=== PATIENT | male | born 1980 | race Caucasian/White ===

== ENCOUNTER 2024-01-02 08:04 | Outpatient (OUT) | payer OTHER, SELFPAY ==
[2024-01-02 08:31] LABS: Basophils Absolute Auto 0.1 10^3/uL (0.0-0.1); Basophils Percent Auto 0.9 % (0.2-2.0); Eosinophils Absolute Auto 0.2 10^3/uL (0.0-0.7); Eosinophils Percent Auto 2.4 % (0.9-7.0); Hematocrit 42.3 % (42.0-54.0); Hemoglobin 13.9 g/dL (14.0-18.0); Immature Granulocytes Abs Auto 0.03 10^3/uL (0.00-0.03); Immature Granulocytes Pct Auto 0.4 % (0.0-0.5); Lymphocytes Absolute Auto 2.5 10^3/uL (1.2-3.8); Lymphocytes Percent Auto 33.1 % (20.5-60.0); Mean Corpuscular HGB Conc 32.9 g/dL (29.9-35.2); Mean Corpuscular Hemoglobin 29.6 pg (25.9-34.0); Mean Platelet Volume 9.8 fL (9.5-13.5); Monocytes Absolute Auto 0.6 10^3/uL (0.3-0.8); Monocytes Percent Auto 8.2 % (1.7-12.0); Neutrophils Absolute Auto 4.2 10^3/uL (1.4-6.5); Platelet Count 202 10^3/uL (150-450); Red Cell Distribution Width 12.7 % (11.0-15.0); White Blood Count 7.6 10^3/uL (4.0-11.0)
[2024-01-02 08:37] LABS: Estimated Average Glucose 111 mg/dL; Glycohemoglobin A1C 5.5 % (4.5-6.2)
[2024-01-02 09:01] LABS: Alanine Aminotransferase 85 U/L (16-63); Albumin Globulin Ratio 1.1; Albumin Level 3.7 g/dL (3.4-5.0); Alkaline Phosphatase 57 U/L (46-116); Anion Gap 12.6; Aspartate Amino Transferase 31 U/L (15-37); BUN Creatinine Ratio 16.7; Bilirubin Total 0.7 mg/dL (0.2-1.0); Calcium 8.5 mg/dL (8.5-10.1); Carbon Dioxide 27.7 mmol/L (21.0-32.0); Chloride 106 mmol/L (98-107); Chol HDL Ratio 5.4; Cholesterol 182 mg/dL (<=200); Estimated GFR (African America >60 (>=60); Estimated GFR (Non-African Ame >60 (>=60); Free T3 3.21 pg/mL (2.18-3.98); Globulin 3.5 g/dL; Glucose 104 mg/dL (74-106); HDL Cholesterol 34 mg/dL (40-60); Potassium 4.3 mmol/L (3.5-5.1); Sodium 142 mmol/L (136-145); Thyroid Stimulating Hormone 1.595 uIU/mL (0.358-3.740); Total Protein 7.2 g/dL (6.4-8.2); Triglycerides 229 mg/dL (<=150); VLDL CHOLESTEROL 45.8 mg/dL
[2024-01-03 12:07] LABS: Insulin 15.3 uIU/mL (2.6-24.9)
== END 2024-01-02 08:05 | disposition home or self-care (01) ==
PROVIDERS: PCP Family Medicine; Visit Provider Family Medicine
DX: Z00.00 Encounter for general adult medical examination without abnormal findings (principal); I48.0 Paroxysmal atrial fibrillation; R73.09 Other abnormal glucose; D64.9 Anemia, unspecified
CPT/HCPCS: 36415; 80053; 80061; 83036; 83525; 83540; 84436; 84443; 84481; 85025

== ENCOUNTER 2024-07-18 14:35 | Emergency (ER) | payer OTHER, SELFPAY ==
[2024-07-18 14:49] VITALS: BP 162/90; PULSE 78; TEMP 36.8; O2SAT 95; BMI 31.2
--- NOTE | 2024-07-18 15:02 | ECG_ITS ---
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
--- NOTE | 2024-07-18 15:02 | CT_ITS ---
The [address] [address] Patient Name: CHARLY ZEE MRN: [id number] date: 1980 Sex: M Assigned Patient Location: ER Current Patient Location: ER Accession/Order Number: [id number] Exam Date: 07/18/2024 15:20 Report Date: 07/18/2024 16:00 At the request of: HUBERT SHEPARD Procedure: CT head/brain wo con EXAM: CT head/brain wo con CLINICAL INDICATION: scotomata, MITCHELL COMPARISON: None TECHNIQUE: Axial CT images of the brain were obtained without contrast. Coronal and sagittal reformats were obtained. Dose reduction techniques were achieved by using automated exposure control and/or adjustment of mA and/or kV according to patient size and/or use of iterative reconstruction technique. FINDINGS: No intracranial hemorrhage, extra-axial fluid collection, hydrocephalus, midline shift, or acute infarction. No other mass effect. Patent basal cisterns. No calvarial fracture. Normal soft tissues. Trace scattered paranasal sinus mucosal thickening. CT/CT head/brain wo con IMPRESSION: No acute intracranial process. Electronically authenticated by: SHANIQUE NOLEN Date: 07/18/2024 16:00
--- NOTE | 2024-07-18 15:03 | ED_ITS ---
HPI HPI - General Adult General Chief complaint: Altered Mental Status Stated complaint: CONFUSION BLURRY VISION Time Seen by Provider: 07/18/24 14:44 Source: patient Mode of arrival: walk-in History of Present Illness HPI narrative: Male presents to the emergency department for episodes of flashing lights in his visual field and headaches. This has been happening for about the past 3 weeks. Twice he had not experienced where it lasted for about 1 or 2 minutes where he felt like he was in a video game, that things were not real. He saw his family doctor about this who is planning on some outpatient testing but it has not been accomplished yet. He does not seem to have any symptoms right now. He has no history of migraine headaches. Related Data Home Medications ?Medication ?Instructions ?Recorded ?Confirmed apixaban 5 mg tablet (Eliquis) 5 mg PO Q12H 07/18/24 07/18/24 losartan 100 mg tablet 100 mg PO DAILY 07/18/24 07/18/24 metoprolol tartrate 50 mg tablet 75 mg PO Q12H 07/18/24 07/18/24 pantoprazole 40 mg tablet,delayed 40 mg PO Q12H 07/18/24 07/18/24 release phentermine 37.5 mg tablet 37.5 mg PO DAILY 07/18/24 07/18/24 simvastatin 40 mg tablet 40 mg PO DAILY 07/18/24 07/18/24 Allergies Allergy/AdvReac Type Severity Reaction Status Date / Time No Known Drug Allergies Allergy Verified 07/18/24 15:13 Opioid HPI Opioid Management Most Recent Opioid Data: No Data to Display Review of Systems ROS Narrative A ten point review of systems is negative except as noted above. PFSH PFSH Social History Little interest or pleasure in doing things: not at all Feeling down, depressed, or hopeless: not at all Exam Narrative Exam Narrative: Nurses note and vital signs reviewed and patient is not hypoxic. General: The patient appears well and in no apparent distress. Patient is resting comfortably on cart. Skin: Warm, dry, no pallor noted. There is no rash noted. Head: Normocephalic, atraumatic Eye: Normal conjunctiva, no drainage; PERRL Ears, Nose, Mouth, and Throat: oral mucosa is moist. Nares patent. Cardiovascular: Regular Rate and Rhythm Respiratory: Patient is in no distress, no accessory muscle use, lungs are clear to auscultation, no wheezing, rales or rhonchi Back: non-tender GI: Soft and nontender Musculoskeletal: The patient has no evidence of calf tenderness, no pitting edema, symmetrical pulses noted bilaterally Neurological: A&O x4, normal speech; upper and lower extremity strength intact and symmetric Psychiatric: Cooperative Constitutional Vital Signs, click to edit/add: Last Vital Signs Temp 98.2 F 07/18/24 14:49 Pulse 78 07/18/24 14:49 Resp 18 07/18/24 14:49 BP 162/90 H 07/18/24 14:49 Pulse Ox 95 07/18/24 14:49 Course Vital Signs Vital signs: Vital Signs Temperature 98.2 F 07/18/24 14:49 Pulse Rate 78 07/18/24 14:49 Respiratory Rate 18 07/18/24 14:49 Blood Pressure 162/90 H 07/18/24 14:49 Pulse Oximetry 95 07/18/24 14:49 Temperature 98.2 F 07/18/24 14:49 Pulse Rate 78 07/18/24 14:49 Respiratory Rate 18 07/18/24 14:49 Blood Pressure 162/90 H 07/18/24 14:49 Pulse Oximetry 95 07/18/24 14:49 Medical Decision Making MDM Narrative Medical decision making narrative: CT brain and blood work are negative. His symptoms are consistent with an ocula r migraine and this was discussed with him. Case discussed as well with his PCP and the patient will continue to follow-up as an outpatient including likely an MRI. Differential Diagnosis Differential Diagnosis: Ocular migraine, migraine headache, intracranial mass Lab Data Lab results reviewed: Yes I reviewed the patient's lab results Labs: Lab Results 07/18/24 Range/Units 15:00 WBC 7.0 (4.0-11.0) 10^3/uL RBC 4.88 (4.70-6.10) 10^6/uL Hgb 14.8 (14.0-18.0) g/dL Hct 44.4 (42.0-54.0) % MCV 91.0 (80.0-94.0) fL MCH 30.3 (25.9-34.0) pg MCHC 33.3 (29.9-35.2) g/dL RDW 12.2 (11.0-15.0) % Plt Count 194 (150-450) 10^3/uL MPV 9.1 L (9.5-13.5) fL Neut % (Auto) 67.2 (43.0-75.0) % Lymph % (Auto) 23.2 (20.5-60.0) % Bullitt % (Auto) 6.5 (1.7-12.0) % Eos % (Auto) 2.1 (0.9-7.0) % Baso % (Auto) 0.7 (0.2-2.0) % Neut # (Auto) 4.7 (1.4-6.5) 10^3/uL Lymph # (Auto) 1.6 (1.2-3.8) 10^3/uL Bullitt # (Auto) 0.5 (0.3-0.8) 10^3/uL Eos # (Auto) 0.2 (0.0-0.7) 10^3/uL Baso # (Auto) 0.1 (0.0-0.1) 10^3/uL Abs Immat Gran (auto) 0.02 (0.00-0.03) 10^3/uL Imm/Tot Granulo (auto) 0.3 (0.0-0.5) % Sodium 139 (136-145) mmol/L Potassium 4.0 (3.5-5.1) mmol/L Chloride 104 (98-107) mmol/L Carbon Dioxide 27.9 (21.0-32.0) mmol/L Anion Gap 11.1 BUN 17.0 (7.0-18.0) mg/dL Creatinine 1.44 H (0.70-1.30) mg/dL Est GFR ( Amer) >60 (>=60 mL/min/1.73m^2) Est GFR (Non-Af Amer) 54 L (>=60 mL/min/1.73m^2) BUN/Creatinine Ratio 11.8 Glucose 100 (74-106) mg/dL Calcium 8.6 (8.5-10.1) mg/dL Imaging Data CT scan - head: Radiologist's impression: ITS Impressions Head CT 07/18/24 15:02 IMPRESSION: No acute intracranial process. Electronically authenticated by: SHANIQUE NOLEN Date: 07/18/2024 16:00 ECG Data Attestation: I personally reviewed and interpreted this ECG as follows: (EKG on my interpretation shows normal sinus rhythm with rate of 77 and no acute change) Discharge Plan Discharge Chief Complaint: Altered Mental Status Clinical Impression: Ocular migraine Patient Disposition: Home, Self-Care Time of Disposition Decision: 16:14 Condition: Good Mode of Transportation: Private Vehicle Prescriptions / Home Meds: No Action Eliquis 5 mg tablet 5 mg PO Q12H losartan 100 mg tablet 100 mg PO DAILY metoprolol tartrate 50 mg tablet 75 mg PO Q12H pantoprazole 40 mg tablet,delayed release (DR/EC) 40 mg PO Q12H phentermine 37.5 mg tablet 37.5 mg PO DAILY simvastatin 40 mg tablet 40 mg PO DAILY Print Language: Maltese Instructions: Migraine Headache (ED), Ocular Migraine (ED) Referrals: Tommy Melgar MD [Primary Care Provider] - 1 week
[2024-07-18 15:17] LABS: Basophils Absolute Auto 0.1 10^3/uL (0.0-0.1); Basophils Percent Auto 0.7 % (0.2-2.0); Eosinophils Absolute Auto 0.2 10^3/uL (0.0-0.7); Eosinophils Percent Auto 2.1 % (0.9-7.0); Hematocrit 44.4 % (42.0-54.0); Hemoglobin 14.8 g/dL (14.0-18.0); Immature Granulocytes Abs Auto 0.02 10^3/uL (0.00-0.03); Immature Granulocytes Pct Auto 0.3 % (0.0-0.5); Lymphocytes Absolute Auto 1.6 10^3/uL (1.2-3.8); Lymphocytes Percent Auto 23.2 % (20.5-60.0); Mean Corpuscular HGB Conc 33.3 g/dL (29.9-35.2); Mean Corpuscular Hemoglobin 30.3 pg (25.9-34.0); Mean Platelet Volume 9.1 fL (9.5-13.5); Monocytes Absolute Auto 0.5 10^3/uL (0.3-0.8); Monocytes Percent Auto 6.5 % (1.7-12.0); Neutrophils Absolute Auto 4.7 10^3/uL (1.4-6.5); Neutrophils Percent Auto 67.2 % (43.0-75.0); Platelet Count 194 10^3/uL (150-450); Red Blood Count 4.88 10^6/uL (4.70-6.10); Red Cell Distribution Width 12.2 % (11.0-15.0)
[2024-07-18 15:22] LABS: Anion Gap 11.1; BUN Creatinine Ratio 11.8; Calcium 8.6 mg/dL (8.5-10.1); Carbon Dioxide 27.9 mmol/L (21.0-32.0); Chloride 104 mmol/L (98-107); Estimated GFR (African America >60 (>=60 mL/min/1.73m^2); Estimated GFR (Non-African Ame 54 (>=60 mL/min/1.73m^2); Glucose 100 mg/dL (74-106); Sodium 139 mmol/L (136-145)
[2024-07-18 16:21] VITALS: BP 164/88; PULSE 84; O2SAT 98
== END 2024-07-18 16:21 | disposition home or self-care (01) ==
PROVIDERS: Emergency Provider Emergency Medicine; PCP Family Medicine
DX: G43.B0 Ophthalmoplegic migraine, not intractable (principal)
CPT/HCPCS: 36415; 70450; 80048; 85025; 93005; 99285

== ENCOUNTER 2024-08-01 07:39 | Outpatient (OUT) | payer OTHER, SELFPAY ==
--- NOTE | 2024-08-01 07:41 | MR_ITS ---
The [address] [address] Patient Name: CHARLY ZEE MRN: [id number] date: 1980 Sex: M Assigned Patient Location: MRI Current Patient Location: MRI Accession/Order Number: [id number] Exam Date: 08/01/2024 07:54 Report Date: 08/01/2024 14:33 At the request of: SHERRY SCHULTZ Procedure: MR head/brain wo con MRI brain without contrast, 08/01/2024. HISTORY: Altered mental status. Headaches. COMPARISON: CT head, 07/18/2024. TECHNIQUE: Multiplanar, multisequence MRI imaging of the brain without contrast. FINDINGS: The paranasal sinuses are clear. The mastoid air cells are clear. Nasopharynx normal. Senior Information Security Engineer spaces are normal. Orbital contents normal. The ventricles are normal in size. There is no hydrocephalus. No extra-axial fluid collection. No mass effect. No shift of midline. No significant signal abnormalities in the brain. Diffusion images are normal. No acute ischemic infarction. T2 gradient images show no hemorrhagic lesions. No intracranial mass. MR/MR head/brain wo con IMPRESSION: Normal MRI of the brain. Electronically authenticated by: LAM EMERY Date: 08/01/2024 14:33
--- OUTSIDE RECORDS SUMMARY | 2024-08-01 07:41 | XMS_ITS | CCD ---
Author Organization [facility] Care Team Providers Care Fios Line Installer Name Role Phone Sherry Melgar Primary Care Provider [phone] OLAF CARLSON Attending Unavailable SHERRY MELGAR Primary Care Unavailable Sherry Melgar Primary Care Physician [phone] Unavailable Primary Care Provider Aylin Cooley, DR POWELL Attending Unavailable ANTOINE ., DR POWELL Consulting Unavailable ANTOINE Cooley, DR POWELL Admitting Unavailable Unavailable Primary Care Provider Yomaira Riuz Attending Unavailable Deyvi GLEZ Attending Unavailable Deyvi GLEZ Attending Unavailable Yomaira MARINELIL Attending Unavailable Medications Current Medications Medication Drug Class(es) Dates Sig (Normalized) Sig (Original) Tylenol (6 sources) Start: 06-09-2022 Tylenol Refill s(s) 0 Start Date: 06/09/22 Status: Ordered Start: 04-15-2016 take 2 tablets by [facility] every four hours as needed for pain acetaminophen (TYLENOL) 325 MG tablet Take 2 Tablets by mouth every 4 hours as needed for Pain. 60 Tablet 3 04/15/2016 Active acetaminophen 325 mg / HYDROcodone bitartrate 5 mg oral tablet (5 sources) Opioid Agonist Start: 01-18-2019 [place] 325 mg-5 mg oral tablet See Instructions, for pain, 40 tab(s), Refill(s) 0, 1 - 2 po q4-6h prn pain Dx: S46.211D Duration: 7 days, [facility]/pharmacy #[id number] Start Date: 01/18/19 Status: Ordered Start: 01-04-2019 End: 01-07-2019 take 1 tablet by mouth every six hours as needed for pain, then take 3 tablets by mouth as needed for pain HYDROcodone-acetaminophen (NORCO) 5-325 mg per tablet Indications: Biceps rupture, distal, right, initial encounter Take 1 (one) tablet by mouth every 6 (six) hours as needed for pain (Days supply per fill: 3) . 12 tablet 0 01/04/2019 01/07/2019 Active amLODIPine 5 mg oral tablet (3 sources) Dihydropyridine Calcium Channel Arnaldo Start: 04-15-2016 take 1 tablet by mouth once daily amLODIPine (NORVASC) 5 MG tablet Take 1 Tablet by mouth daily. 30 Tablet 3 04/15/2016 Active apixaban 5 mg oral tablet (4 sources) Factor Xa Inhibitor Start: 05-26-2022 take 1 tablet by mouth twice daily Eliquis 5 mg oral tablet See Instructions, 1 tab(s) bid, Refills(s) 0 Start Date: 05/26/22 Status: Ordered budesonide 0.032 mg/actuat metered dose nasal spray (3 sources) Corticosteroid Start: 05-20-2016 take 2 spray(s) nasal route once daily budesonide (RHINOCORT AQUA) 32 MCG/ACT nasal spray [place] 2 Sprays into each nostril daily. 1 Inhaler 2 05/20/2016 Active Diclofenac (3 sources) Nonsteroidal Anti-inflammatory Drug Start: 06-09-2022 Voltaren Topical Refill(s) 0 Start Date: 06/09/22 Status: Ordered docusate sodium 100 mg oral capsule (3 sources) Start: 04-15-2016 take 1 capsule by mouth twice daily docusate sodium (COLACE) 100 MG capsule Take 1 Capsule by mouth 2 times daily. 60 Capsule 3 04/15/2016 Active glycerin 2 mg/ml / hypromellose 2 mg/ml / polyethylene glycol 400 10 mg/ml ophthalmic solution (3 sources) Non-Standardized Chemical Allergen Start: 04-15-2016 take 1 drop(s) into the eye(s) four times daily glycerin-hypromello se- (ARTIFICIAL TEARS) 0.2-0.2-1 % SOLN ophthalmic solution Place 1 Drop in the left eye 4 times daily. 1 Bottle 3 04/15/2016 Active losartan potassium 100 mg oral tablet (4 sources) Angiotensin 2 Receptor Arnaldo Start: 05-26-2022 losartan 100 mg Tab Refills(s) 0 Start Date: 05/26/22 Status: Ordered 24 hr metoprolol succinate 50 mg extended release oral tablet (4 sources) beta-Adrenergic Arnaldo Start: 05-26-2022 take 1 tablet by mouth twice daily metoprolol 50 mg ER Tab See Instructions, 1 tab(s) Oral bid, Refills(s) 0 Start Date: 05/26/22 Status: Ordered predniSONE 20 mg oral tablet (4 sources) Start: 05-26-2022 take 3 tablets by mouth once daily, then take 2 tablets by mouth once daily, then take 1 tablet by mouth once daily predniSONE 20 mg Tab See Instructions, 3 tab po daily x 3 days, then 2 tab po daily x 3 days, then 1 tab po daily x 3 days., # 18 tab(s), Refills(s) 0, Pharmacy: [facility]/pharmacy #[id number] Start Date: 05/26/22 Status: Ordered sennosides, senior care 8.6 mg oral tablet (3 sources) Start: 04-15-2016 take 1 tablet by mouth at bedtime senna (SENOKOT) 8.6 MG tablet Take 1 Tablet by mouth at bedtime. 30 Tablet 3 04/15/2016 Active simvastatin 40 mg oral tablet (4 sources) HMG-CoA Reductase Inhibitor Start: 05-26-2022 simvastatin 40 mg Tab Refills(s) 0 Start Date: 05/26/22 Status: Ordered Transthoracic Echocardiogram in One week. (4 sources) Start: 01-19-2019 Transthoracic Echocardiogram in One week. Transthoracic Echocardiogram in One week., Please fax results to Dr. Floyd., Print Requisition, Compound Start Date: 01/19/19 Status: Ordered Problems Active Problems Problem Classification Problem Date Documented Da te Episodic/Chronic Essential hypertension (3 sources) Hypertensive disorder 05-28-2022 Chronic Other injuries and conditions due to external causes (4 sources) Tendon laceration 01-17-2019 Episodic Comment on above: right bicep Substance-related disorders (4 sources) Smoker 05-31-2018 Chronic Comment on above: Added secondary to d ocumentation in Social History. Past or Other Problems Problem Classification Problem Date Documented Da te Episodic/Chronic Other connective tissue disease (5 sources) Rupture of tendon of biceps; Translations: [Biceps rupture, distal, right, initial encounter] Onset: 01-04-2019 03-14-2019 Episodic Comment on above: R distal biceps rupt ure Skull and face fractures (3 sources) Open fracture of base of skull; Translations: [Fracture of base of skull, unspecified side, initial encounter for open fracture] Onset: 04-13-2016 04-13-2016 Episodic Results Test Name Value Interpretation Reference Range Facility Registrationon 01-18-2024 Registration [id number]#[id number] [facility] [place] 08-28-2023 Consent [id number]#[id number] [facility] Registrationon 08-28-2023 Registration [id number]#1.00TIFF [facility] In office Testingon 05-07-20 In office Testing [id number]#1.00CD:12 7 [facility] [place] 05-06-2023 Consent [id number]#1.00CD:127 [facility] Registrationon 05-06-2023 Registration [id number]#1.00CD:12 7 [facility] INSULINon 12-16-2022 Insulin 24.0 uIU/mL Normal 2.6-24.9 [facility] Comment on above: Performed By: #### I NSULIN #### [facility] [address] [place] [address] Dr. Betzy Moore TESTOSTERONE, TOTALon 2022 Testosterone [Mass/Vol] 285 ng/dL Normal 264-916 T [facility] Comment on above: Result Comment: Adul t male reference interval is based on a population of healthy nonobese males (BMI <30) between 19 and 39 years old. Estuardo, et.al. JCEM 2017,102;7529-3274. PMID: [id number]. Performed By: #### T ESTTOT #### [facility] [address] [place] [address] Dr. Betzy Moore CBC AUTO DIFFon 12-15-2022 BASO # 0.1 103/ul Normal 0.0-0.1 [facility] Comment on above: Performed By: #### C BC #### [facility] [address] [place] [address] Dr. Betzy Moore Basophils/100 WBC (Bld) 1.0 % Normal 0.2-2.0 [facility] Comment on above: Performed By: #### C BC #### [facility] [address] [place] [address] Dr. Betzy Moore EO # 0.2 103/ul Normal 0.0-0.7 [facility] Comment on above: Performed By: #### C BC #### [facility] [address] [place] [address] Dr. Betzy Moore Eosinophils/100 WBC (Bld) 2.8 % Normal 0.9-7.0 [facility] Comment on above: Performed By: #### C BC #### [facility] [address] [place] [address] Dr. Betzy Moore Erythrocyte distribution width (RBC) [Ratio] 12.1 % Normal 11.0-15.0 [facility] Comment on above: Performed By: #### C BC #### [facility] [address] [place] [address] Dr. Betzy Moore Hematocrit (Bld) [Volume fraction] 44.7 % Normal 42.0-54.0 [facility] Comment on above: Performed By: #### C BC #### [facility] [address] [place] [address] Dr. Betzy Moore Hemoglobin (Bld) [Mass/Vol] 14.9 g/dL Normal 14.0-18.0 [facility] Comment on above: Performed By: #### C BC #### [facility] [address] [place] [address] Dr. Betzy Moore IG # 0.02 10e3/ul Normal 0.00-0.03 [facility] Comment on above: Performed By: #### C BC #### [facility] [address] [place] [address] Dr. Betzy Moore IG % 0.3 % Normal 0.0-0.5 [facility] Comment on above: Performed By: #### C BC #### [facility] [address] [address] [address] Betzy Moore LYMPH # 2.0 103/ul Normal 1.2-3.8 [facility] Comment on above: Performed By: #### C BC #### [facility] [address] [address] [address] Betzy Moore Lymphocytes/100 WBC (Bld) 34.8 % Normal 20.5-60.0 [facility] Comment on above: Performed By: #### C BC #### [facility] [address] [place] [address] Dr. Betzy Moore MANUAL DIFF REQ NO Normal [facility] Comment on above: Performed By: #### C BC #### [facility] [address] [place] [address] Dr. Betzy Moore MCH (RBC) [Entitic mass] 29.4 pg Normal 25.9-34.0 [facility] Comment on above: Performed By: #### C BC #### [facility] [address] [place] [address] Dr. Betzy Moore MCHC (RBC) [Mass/Vol] 33.3 g/dL Normal 29.9-35.2 [facility] Comment on above: Performed By: #### C BC #### [facility] [address] [place] [address] Dr. Betzy Moore MCV (RBC) [Entitic vol] 88.3 fL Normal 80.0-94.0 [facility] Comment on above: Performed By: #### C BC #### [facility] [address] [place] [address] Dr. Betzy Moore MONO # 0.4 103/ul Normal 0.3-0.8 [facility] Comment on above: Performed By: #### C BC #### [facility] [address] [place] [address] Dr. Betzy Moore Monocytes/100 WBC (Bld) 7.2 % Normal 1.7-12.0 [facility] Comment on above: Performed By: #### C BC #### [facility] [address] [address] [address] Betzy Moore NEUT # 3.1 103/ul Normal 1.4-6.5 [facility] Comment on above: Performed By: #### C BC #### [facility] [address] [address] [address] Betzy Moore Neutrophils/100 WBC (Bld) 53.9 % Normal 43.0-75.0 [facility] Comment on above: Performed By: #### C BC #### [facility] [address] [address] [address] Betzy Moore Platelet mean volume (Bld) [Entitic vol] 8.9 fL Critically low 9.5-13.5 [facility] Comment on above: Performed By: #### C BC #### [facility] [address] [place] [address] Dr. Betzy Moore PLT 178 103/ul Normal 150-450 [facility] Comment on above: Performed By: #### C BC #### [facility] [address] [address] [address] Betzy Moore RBC 5.06 106/ul Normal 4.70-6.10 [facility] Comment on above: Performed By: #### C BC #### [facility] [address] [place] [address] Dr. Betzy Moore WBC 5.7 103/ul Normal 4.0-11.0 [facility] Comment on above: Performed By: #### C BC #### [facility] [address] [place] [address] Dr. Betzy Moore GLYCOHEMOGLOBIN A1Con 2022 ADA RECOMMENDATION SEE BELOW Normal [facility] Comment on above: Result Comment: ADA RECOMMENDED LIMIT 4.0 - 6.0 ADA THERAPEUTIC TARGET < 7.0 ACTION SUGGESTED > 7.0 Performed By: #### A 1C #### [facility] [address] [place] [address] Dr. Betzy Moore Glucose [Mass/Vol] 97 mg/dL Normal [facility] Comment on above: Performed By: #### A 1C #### [facility] [address] [place] [address] Dr. Betzy Moore HbA1c (Bld) [Mass fraction] 5.0 % Normal 4.5-6.2 [facility] Comment on above: Performed By: #### A 1C #### [facility] [address] [place] [address] Dr. Betzy Moore PROF 14(COMP METB)on 023 Albumin [Mass/Vol] 4.0 g/dL Normal 3.4-5.0 [facility] Comment on above: Performed By: #### C MP #### [facility] [address] [place] [address] Dr. Betzy Moore Albumin/Globulin [Mass ratio] 0.9 {ratio} Normal [facility] Comment on above: Performed By: #### C MP #### [facility] [address] [place] [address] Dr. Betzy Moore ALP [Catalytic activity/Vol] 55 U/L Normal 46-116 [facility] Comment on above: Performed By: #### C MP #### [facility] [address] [place] [address] Dr. Betzy Moore ALT [Catalytic activity/Vol] 73 U/L Critically high 16-63 [facility] Comment on above: Performed By: #### C MP #### [facility] [address] [place] [address] Dr. Betzy Moore Anion gap [Moles/Vol] 16.1 mmol/L Normal [facility] Comment on above: Performed By: #### C MP #### [facility] [address] [place] [address] Dr. Betzy Moore AST [Catalytic activity/Vol] 34 U/L Normal 15-37 [facility] Comment on above: Performed By: #### C MP #### [facility] [address] [place] [address] Dr. Betzy Moore Bilirubin [Mass/Vol] 0.7 mg/dL Normal 0.2-1.0 [facility] Comment on above: Performed By: #### C MP #### [facility] [address] [address] [address] Betzy Moore Calcium [Mass/Vol] 9.0 mg/dL Normal 8.5-10.1 [facility] Comment on above: Performed By: #### C MP #### [facility] [address] [address] [address] Betzy Moore Chloride [Moles/Vol] 102 mmol/L Normal 98-107 [facility] Comment on above: Performed By: #### C MP #### [facility] [address] [address] [address] Betzy Moore CO2 [Moles/Vol] 25.3 mmol/L Normal 21.0-32.0 [facility] Comment on above: Performed By: #### C MP #### [facility] [address] [place] [address] Dr. Betzy Moore Creatinine [Mass/Vol] 0.93 mg/dL Normal 0.70-1.30 [facility] Comment on above: Performed By: #### C MP #### [facility] [address] [address] [address] Betzy Moore EGFR-AF [place]LANDER >60 Normal >=60 [facility] Comment on above: Performed By: #### C MP #### [facility] [address] [place] [address] Dr. Betzy Moore EGFR-NON AF [place]ER >60 Normal >=60 [facility] Comment on above: Performed By: #### C MP #### [facility] [address] [address] [address] Betzy Moore Globulin (S) [Mass/Vol] 4.4 g/dL Normal T [facility] Comment on above: Performed By: #### C MP #### [facility] [address] [place] [address] Dr. Betzy Moore Glucose [Mass/Vol] 106 mg/dL Normal 74-106 [facility] Comment on above: Performed By: #### C MP #### [facility] [address] [address] [address] Betzy Moore Potassium [Moles/Vol] 4.4 mmol/L Normal 3.5-5.1 [facility] Comment on above: Performed By: #### C MP #### [facility] [address] [address] [address] Betzy Moore Protein [Mass/Vol] 8.4 g/dL Critically high 6.4-8.2 T [facility] Comment on above: Performed By: #### C MP #### [facility] [address] [address] [address] Betzy Moore Sodium [Moles/Vol] 139 mmol/L Normal 136-145 [facility] Comment on above: Performed By: #### C MP #### [facility] [address] [place] [address] Dr. Betzy Moore Urea nitrogen [Mass/Vol] 15.0 mg/dL Normal 7.0-18.0 [facility] Comment on above: Performed By: #### C MP #### [facility] [address] [place] [address] Dr. Betzy Moore Urea nitrogen/Creatinine [Mass ratio] 16.1 mg/mg Normal [facility] Comment on above: Performed By: #### C MP #### [facility] [address] [place] [address] Dr. Betzy Moore CHEMISTRYOrdered By: SYSTEM SYSTEM on 07-23-2022 Anion gap [Moles/Vol] 11 mmol/L Normal 6 - 16 mEq/L [facility] [place] Rem[facility] Calcium [Mass/Vol] 9.4 mg/dL Normal 8.9 - 11. 1 mg/dL [facility] Chloride [Moles/Vol] 99 mmol/L Low 101 - 1 11 mmol/L [facility] CO2 [Moles/Vol] 29 mmol/L Normal 21 - 31 mmol/L [facility] Creatinine [Mass/Vol] 1.0 mg/dL Normal 0.5 - 1.3 mg/dL [facility] GFR/1.73 sq M.predicted among blacks MDRD (S/P/Bld) [Vol rate/Area] mL/min/1.73 m2 Normal >=59mL/min/1.7 3 m2 [facility] S GFR/1.73 sq M.predicted among non-blacks MDRD (S/P/Bld) [Vol rate/Area] mL/min/1.73 m2 Normal >=59mL/min/1.7 3 m2 [facility] S Glucose [Mass/Vol] 101 mg/dL Normal 55 - 199 mg/dL [facility] Remisol Potassium [Moles/Vol] 4.2 mmol/L Normal 3.5 - 5.3 mmol/L [facility] Sodium [Moles/Vol] 135 mmol/L Normal 135 - 145 mmol/L [facility] Urea nitrogen [Mass/Vol] 20 mg/dL Normal 5 - 21 mg/dL [facility] Urea nitrogen/Creatinine [Mass ratio] 20 mg/mg Normal 10 - 20 [facility] HEMATOLOGYOrdered By: SYSTEM SYSTEM on 07-23-2022 Basophils/100 WBC (Bld) 0.9 % Normal 0.0 - 2.0 % [facility] Basophils/Leukocytes Auto (Bld) [Pure # fraction] 0.1 E9/L Normal 0.0 - 0.2 E9/L [facility] Eosinophils/100 WBC (Bld) 3.9 % Normal 0.0 - 8.0 % [facility] Eosinophils/Leukocytes Auto (Bld) [Pure # fraction] 0.3 E9/L Normal 0.0 - 0.5 E9/L [facility] Lymphocytes/100 WBC (Bld) 35.9 % Normal 14.0 - 50.0 % [facility] Lymphocytes/Leukocytes Auto (Bld) [Pure # fraction] 2.5 E9/L Normal 1.0 - 4.0 E9/L [facility] Monocytes/100 WBC (Bld) 7.4 % Normal 4.0 - 14.0 % [facility] Monocytes/Leukocytes Auto (Bld) [Pure # fraction] 0.5 E9/L Normal 0.2 - 1.0 E9/L [facility] Neutrophils/100 WBC (Bld) 51.9 % Normal 36.0 - 75.0 % [facility] Neutrophils/Leukocytes Auto (Bld) [Pure # fraction] 3.6 E9/L Normal 2.0 - 7.5 E9/L [facility] HEMATOLOGYOrdered By: Sophia Carrillo on 07-23-2022 Erythrocyte distribution width (RBC) [Ratio] 13.2 % Normal 10.9 - 14.2 % [facility] Hematocrit (Bld) [Volume fraction] 44.2 % Normal 37.7 - 49.0 % [facility] S Hemoglobin (Bld) [Mass/Vol] 14.9 g/dL Normal 13.5 - 17.5 gm/dL [facility] MCH (RBC) [Entitic mass] 30.0 pg Normal 27.0 - 34.0 pg [facility] MCHC (RBC) [Mass/Vol] 33.7 g/dL Normal 31.4 - 36.0 gm/dL [facility] MCV (RBC) [Entitic vol] 89.0 fL Normal 80.0 - 100.0 fL [facility] Platelet mean volume (Bld) [Entitic vol] 7.0 fL Normal 6.4 - 10.8 fL [facility] Platelets (Bld) [#/Vol] 225.0 E9/L Normal 150. 0 - 500.0 E9/L [facility] RBC (Bld) [#/Vol] 5.0 E12/L Normal 4.3 - 5.9 E12/L [facility] WBC corrected for nucl RBC Auto (Bld) [#/Vol] 6.9 E9/L Normal 4.0 - 11.0 E9/L [facility] XR HUMERUS RIGHT 2+ VIEWS (S TANDARD)on 01-04-2019 XR HUMERUS RIGHT 2+ VIEWS (STANDARD) EXAMINATION: XR HUMERUS RIGHT 2+ VIEWS (STANDARD) DATE: 01/04/2019 HISTORY: pain, swelling after excessive lifting. ruptured bicep? Reason for exam?:pain, swelling after excessive lifting Injury/Trauma or Illness?:Illness/ Other How long have you had these symptoms (acute/chronic)?: Acute History of cancer?:n Surgeries, chemotherapy, or radiation?:n TECHNIQUE: Two views of the right humerus were obtained. Three images are generated. COMPARISON: None. FINDINGS: Overlying clothing artifact is present. No acute fracture or remy bone destruction is identified. There is some infiltration of soft tissues along the anterior distal upper arm. Myocutaneous injury should be considered. IMPRESSION: No acute bony disturbance in the humerus is noted. Distortion of anterior mid-distal soft tissues is noted. Myocutaneous injury/tear with retraction of the biceps could be considered. MRI could be considered for further evaluation. [employer] Workstation ID: [id number] Dictated by: JASMYNE TRAYLOR on ThuJan 04, 2019 4:14:19 PM EDT Transcribed by: FRED MARTÍNEZ on ThuJan 04, 2019 4:20:25 PM EDT Finalized by: JASMYNE TRAYLOR on ThuJan 04, 2019 4:29:54 PM EDT Normal [facility] Comment on above: Order Comment: Reaso n for exam?:pain, swelling after excessive lifting Injury/Trauma or Illness?:Illness/Other How long have you had these symptoms (acute/chronic)?:Acute History of cancer?:n Surgeries, chemotherapy, or radiation?:n Type of Exam?:Initial Additional signs and symptoms?:n XR Humerus Right 2+ Views (S tandard)on 01-04-2019 No acute bony disturbance in the humerus is noted. Distortion of anterior mid-distal soft tissues is noted. Myocutaneous injury/tear with retraction of the biceps could be considered. MRI could be considered for further evaluation. [employer] Workstation ID: [id number] [facility] EXAMINATION: XR HUMERUS RIGHT 2+ VIEWS (STANDARD) DATE: 01/04/2019 HISTORY: pain, swelling after excessive lifting. ruptured bicep? Reason for exam?:pain, swelling after excessive lifting Injury/Trauma or Illness?:Illness/ Other How long have you had these symptoms (acute/chronic)?: Acute History of cancer?:n Surgeries, chemotherapy, or radiation?:n TECHNIQUE: Two views of the right humerus were obtained. Three images are generated. COMPARISON: None. FINDINGS: Overlying clothing artifact is present. No acute fracture or remy bone destruction is identified. There is some infiltration of soft tissues along the anterior distal upper arm. Myocutaneous injury should be considered. [facility] Interface, Rad In Luisi Speechq - 01/04/2019 4:32 PM EDT EXAMINATION: XR HUMERUS RIGHT 2+ VIEWS (STANDARD) DATE: 01/04/2019 HISTORY: pain, swelling after excessive lifting. ruptured bicep? Reason for exam?:pain, swelling after excessive lifting Injury/Trauma or Illness?:Illness/ Other How long have you had these symptoms (acute/chronic)?: Acute History of cancer?:n Surgeries, chemotherapy, or radiation?:n TECHNIQUE: Two views of the right humerus were obtained. Three images are generated. COMPARISON: None. FINDINGS: Overlying clothing artifact is present. No acute fracture or remy bone destruction is identified. There is some infiltration of soft tissues along the anterior distal upper arm. Myocutaneous injury should be considered. IMPRESSION: No acute bony disturbance in the humerus is noted. Distortion of anterior mid-distal soft tissues is noted. Myocutaneous injury/tear with retraction of the biceps could be considered. MRI could be considered for further evaluation. [facility] Workstation ID: [id number] [facility] Vital Signs Date Time Vital Sign Value Performing Clinician Himanshu james 01-04-2019 15:10-0400 BMI (Body Mass Index) 32.1 kg/m2 [facility] 01-04-2019 15:10-0400 Body Temperature 97.11 [degF] [facility] 01-04-2019 15:10-0400 BP Diastolic 64 mm[Hg] [facility] 01-04-2019 15:10-0400 BP Systolic 112 mm[Hg] [facility] 01-04-2019 15:10-0400 Height 188 cm [facility] 01-04-2019 15:10-0400 Pulse (Heart Rate) 89 /min [facility] 01-04-2019 15:10-0400 Respiratory Rate 16 /min [facility] 01-04-2019 15:10-0400 Weight 113.4 kg [facility] Encounters Encounter Date Encounter Type Care Provider Facility Start: 04-19-2024 End: 04-19-2024 ambulatory [facility] Komal MARINELLI [facility] Start: 01-18-2024 End: 01-18-2024 ambulatory [facility] acute hospital [facility] Start: 12-06-2023 Letter encounter Peggy duran Start: 08-28-2023 End: 08-28-2023 ambulatory [facility] acute hospital [facility] Start: 05-06-2023 End: 05-06-2023 ambulatory Yomaira Komal MARINELLI [facility] Start: 12-15-2022 End: 12-16-[address] SHERRY MELGAR . Facility: Start: 09-01-2022 Letter encounter Peggy santacruz Start: 08-20-2022 End: 08-20-2022 Patient encounter procedure Harry John [facility] Start: 07-23-2022 End: 07-23-2022 Patient encounter procedure Olaf Jenkins [facility] Start: 07-11-2022 End: 07-11-2022 Patient encounter procedure Olaf Jenkins Rajwinderjenny [facility] Start: 06-02-2022 Letter encounter Peggy duran Start: 05-26-2022 End: 05-26-2022 Patient encounter procedure Yomaira Komal MARINELLI [facility] Start: 01-04-2019 End: 01-04-2019 Emergency department patient visit OLAF CARLSON [facility] Start: 01-04-2019 End: 01-04-2019 Emergency department patient visit Olaf Carlson Work Phone: [facility] Emergency Department Comment on above: Biceps rupture, dist al, right, initial encounter (Primary Dx) Procedures Date Procedure Procedure Detail Performing Clinician Start: 12-15-[address] MIGUEL A MELGAR . Comment on above: Performed By: #### P [facility] #### [facility] [address] [place] [address] Dr. Betzy Moore Start: 01-18-2019 RIGHT DISTAL BICEP REPAIR Yomaira MARINELLI Start: 01-04-2019 Radex humerus minimu m 2 views Olaf Carlson Work Phone: bicep repair Yomaira MARINELLI None (qualifier value) Yomaira MARINELLI Right bicep repair 1 Olaf christina Comment on above: January [address] Rajwinder alvarado Plan of Treatment Date Care Activity Detail Author Start: 2030 Shingles (RZV) Vacci ne (1 of 2) Shingles (RZV) Vaccine (1 of 2) [facility] Start: 05-03-2022 Influenza vaccination Influenza Vacc ine (#1) [facility] Start: 04-03-2019 Influenza vaccination given SE QUENTIAL INFLUENZA VACCINE (Season Ended) [facility] Start: 12-01-2015 Lipid panel Cholesterol [facility] Start: 12-01-2007 HPV Vaccine (optiona l start 27-45 years) HPV Vaccine (optional start 27-45 years) [facility] Start: 12-01-1999 Hepatitis A (HAV) Va ccine (optional start 19+ years) Hepatitis A (HAV) Vaccine (optional start 19+ years) [facility] Start: 1998 Hepatitis C screening Hepatitis C An tibody [facility] Start: 1998 Tetanus + diphtheria + acellular pertussis vaccine (product) Tdap Booster [facility] Start: 12-01-1995 HIV screening HIV Test [facility] Start: 12-01-1983 History and physical examination, annual for health maintenance Wellness Visit [facility] Start: 06-01-1981 COVID-19 Vaccine (#1) COVID-19 Vacci ne (#1) [facility] Start: 1980 Hepatitis B vaccination Hepati tis B (HBV) Vaccine (1 of 3 - 3-dose series) [facility] Start: 1980 Tetanus vaccination TETANUS EVERY 10 YR [facility] Immunizations Immunization Date Immunization Notes Care Provider Perez alonso 04-13-2016 tetanus toxoid, reduced diphtheria toxoid, and acellular pertussis vaccine, adsorbed Yomaira MARINELLI [facility] NEGATED: Highlighted row has not occurred!04-13-2016 tetanus toxoid, reduced diphtheria toxoid, and acellular pertussis vaccine, adsorbed Yomaira MARINELLI [facility] Comment on above: Result Note: immuniz ation given per other order and administered Payers Date Payer Category Payer Unknown [id number] 2019 Worker's Compensation [phone] 2014 Unknown ANTHEM - BLUE CR OSS BLUE CROSS/HMO,PPO,POS [id number] 2014-Present [address] [place] [address] PPO [id number] 1980 Unknown [id number] 1980 Unknown [id number] 1980 Unknown [id number] 1980 Unknown [id number] 1959 Unknown [id number] Worker's Compensation WORKER'S C [employer]END[employer] WORK[employer] COMPENSATION [id number] Effective for all dates [id number] Social History Date Type Detail Facility Start: 01-04-2019 Tobacco smoking stat [facility] Current some day smoker [facility] Start: 01-04-2019 Alcohol Comment socially [facility] Start: 1980 Sex Assigned At Not on file [facility] Comment on above: some day smoker, sta carol he smokes socialy Tobacco smoking status No Smokin g Status Entered [facility] Start: 12-20-2018 Sex Assigned At Male [facility] Start: 04-14-2016 [facility] Start: 04-05-2000 End: 04-05-2010 History of tobacco use Current smoker [facility] Start: 04-05-2000 End: 04-05-2010 History of tobacco use Cigarette Smoker [facility] Start: 04-14-2016 End: 12-20-2018 Cigarettes smoked current (pack per day) - [facility] Start: 04-14-2016 Tobacco use and exposure Smokeless tobacco non-user [facility] Start: 12-06-2023 Gender identity Identifies as male gender (finding) [facility] Start: 12-06-2023 Sexual orientation Heterosexual (irma meier) [facility] Evaluation + Plan note Note Date & Type Note Facility Evaluation + Plan note Future Appointments Appointment Date:06/09/2022 09:30:00 AM Scheduled Provider:Yomaira MARINELLI CNP [place] [place] [place] Type:[facility] Follow up [facility] () [facility] Evaluation + Plan note Note Date & Type Note Facility Evaluation + Plan note Future Appointments Appointment Date:07/21/2022 08:00:00 AM Scheduled Provider:Yomaira MARINELLI CNP [place] [place] Appointment Type:[facility] Injury Follow up [facility] () [facility] Evaluation + Plan note Note Date & Type Note Facility Evaluation + Plan note Future Appointments Appointment Date:08/06/2022 08:30:00 AM Scheduled Provider:Yomaira MARINELLI CNP [place] [place] [facility] Appointment Type:[facility] Injury Follow up [facility] () [facility] Hospital course Narrative Note Date & Type Note Facility Hospital course Narrative No data available for this section [facility] Hospital Discharge instructions Note Date & Type Note Facility Hospital Discharge instructions No data available for this section [facility] Progress note Note Date & Type Note Facility Progress note No data available for this section [facility] Discharge Instructions * Attachments The following attachments cannot be sent through Care Everywhere. 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 Advance Directives and Livin g Will 01/04/2019 4:12 PM Latest Code Status on File Code Status Date Activated Date Inactivated Comments Full Code 04/13/2016 11:59 PM 04/15/2016 5:35 PM Latest Code Status on File Code Status Date Activated Date Inactivated Comments Full Code 04/13/2016 11:59 PM 04/15/2016 5:35 PM Summary Purpose Family History No Family History Records FoundNo Family History Records FoundNo Family History Records Found Additional Source Comments Reason for Visit (unrecogniz ed section and content) Reason Comments Arm Pain Sheryl Henao RN - 01/04/2019 5:40 PM Olaf Garcia MD - 01/04/2019 5:27 PM Sheryl Ni RN - 01/04/2019 3:49 PM Sheryl Ni RN - 01/04/2019 3:12 PM EDT ED Notes (unrecognized secti on and content) PATIENT TOLERATED APPLICATION OF SLING. VERBALIZED UNDERSTANDING OF D/C AND FOLLOW UP. AMBULATORY WITHOUT DISTRESS. ED PROVIDER NOTE [facility] NAME: Charly Zee AGE: 38 y.o. : 1980 VISIT DATE: 01/04/2019 CSN: [id number] PCP: Sherry Melgar MD Chief Complaint Patient presents with Arm Pain History provided by: Patient Arm Pain Chronicity: New Duration: 1 hour Onset quality: Sudden Severity: Severe Context: Heavy lifting, felt pop/tear sensation, noted bicep muscle bunch up. Associated symptoms: no myalgias and no rash History reviewed. No pertinent past medical history. History reviewed. No pertinent surgical history. History reviewed. No pertinent family history. Social History Socioeconomic History Marital status: Single Spouse name: Not on file Number of children: Not on file Years of education: Not on file Highest education level: Not on file Occupational History Not on file Social Needs Financial resource strain: Not on file Food insecurity: Worry: Not on file Inability: Not on file Transportation needs: Medical: Not on file Non-medical: Not on file Tobacco Use Smoking status: Current Some Day Smoker Smokeless tobacco: Never Used Substance and Sexual Activity Alcohol use: Yes Comment: socially Drug use: Not Currently Sexual activity: Not on file Lifestyle Physical activity: Days per week: Not on file Minutes per session: Not on file Stress: Not on file Relationships Social connections: Talks on phone: Not on file Gets together: Not on file Attends advent service: Not on file Active member of club or organization: Not on file Attends meetings of clubs or organizations: Not on file Relationship status: Not on file Other Topics Concern Not on file Social History Narrative Not on file No current outpatient medications on file prior to encounter. No Known Allergies Review of Systems Musculoskeletal: Negative for myalgias. Skin: Negative for rash. All other systems reviewed and are negative. Patient Vitals for the past 24 hrs: BP Temp Temp src Pulse Resp Height Weight 01/04/19 1510 112/64 97.1 F (36.2 C) Temporal 89 16 6' 2 113.4 kg (250 lb) Physical Exam Constitutional: He appears well-developed and well-nourished. No distress. HENT: Head: Atraumatic. Nose: Nose normal. Mouth/Throat: Oropharynx is clear and moist. Eyes: No scleral icterus. PER, pupils are unremarkable size. No significant injection or discharge. Neck: Normal range of motion. No tracheal deviation present. Cardiovascular: Normal rate and regular rhythm. Pulmonary/Chest: Effort normal. No stridor. No respiratory distress. Abdominal: He exhibits no distension. Musculoskeletal: Extremities are grossly normal on simple inspection. No deformities or decreased ROM noted. On detailed examination, the right bicep is not the same size as the left. He has pain with flexion against resistance and severe pain with supination against resistance. Otherwise, neurovascularly intact with no loss of perfusion or sensation distally. No other injury. Neurological: He is alert. He exhibits normal muscle tone. Coordination normal. Awake, alert and appropriate. Skin: Skin is warm and dry. Capillary refill takes less than 2 seconds. He is not diaphoretic. No erythema. No pallor. Psychiatric: He has a normal mood and affect. His behavior is normal. Judgment and thought content normal. Nursing note and vitals reviewed. Laboratory & Radiographic Imaging (if done): No results found for this visit on 01/04/19. XR Humerus Right 2+ Views (Standard) Final Result No acute bony disturbance in the humerus is noted. Distortion of anterior mid- distal soft tissues is noted. Myocutaneous injury/tear with retraction of the biceps could be considered. MRI could be considered for further evaluation. [facility] Workstation ID: [id number] Procedures MDM Number of Diagnoses or Management Options Biceps rupture, distal, right, initial encounter: new, needed workup Risk of Complications, Morbidity, and/or Mortality Presenting problems: low Diagnostic procedures: low Management options: low General comments: Patient appears to have a partial tear of the bicep and/or surrounding fascia. He does have normal range of motion although painful. He is placed into a sling for comfort. He has already made arrangements to meet with occupational medicine at the hospital in his hometown. His employer is at bedside. All of their questions were answered to their satisfaction. Patient is discharged in stable condition for occupational medicine and physical therapy and probable orthopedic follow-up. Patient Progress Patient progress: stable ED Course as of Jan 04 1727 Tue Jan 04, 2019 1707 No acute bony disturbance in the humerus is noted. Distortion of anterior mid-distal soft tissues is noted. Myocutaneous injury/tear with retraction of the biceps could be considered. MRI could be considered for further evaluation. [DH] ED Course User Index [DH] Olaf Carlson MD . . Clinical Impression: SNOMED CT(R) 1. Biceps rupture, distal, right, initial encounter RUPTURE OF TENDON OF BICEPS ED Disposition ED Disposition Condition Comment Discharge Stable Charly Zee discharged to home/self care in stable condition. Follow-up Information 1. Please follow up. Follow-up with the occupational medicine clinic at your home hospital tomorrow morning per your appointment. Contact information for after-discharge care Follow-up information has not been specified. New Prescriptions HYDROcodone-acetaminophen (NORCO) 5-325 mg per tablet Take 1 (one) tablet by mouth every 6 (six) hours as needed for pain (Days supply per fill: 3) . Olaf Carlson MD 01/04/19 1730 XRAY ATTEMPTS TO TAKE PATIENT, WHO REFUSES TO END PHONE CALL. PATIENT ARRIVES AMBULATORY WITH C/O I TORE MY BICEP. PATIENT TEARFUL BUT STOIC REPORTS NO PAIN UNLESS HE MOVES IT. DENIES NUMBNESS AND TINGLING. RADIAL PULSE PRESENT. RESTING ON COT. NO DISTRESS. PATIENT WORKS FOR [employer]. documented in this encounter (unrecognized sect ion and content) No Status Records FoundNo Status Records FoundNo Status Records Found INFORMATION SOURCE (unrecogn ized section and content) DATE CREATED AUTHOR 03/13/2019 [facility] DATE CREATED AUTHOR AUTHOR'S ORGANIZ ATION 12/16/2022 [facility] DATE CREATED AUTHOR AUTHOR'S ORGANIZ ATION 04/21/2024 [facility] Patient Care team informatio n (unrecognized section and content) Personnel Name: Sherry Melgar MD Address: Address: [address] [place] [address] Personnel Name: Sherry Melgar MD Address: Address: [address] [place] [address] Personnel Name: Sherry Melgar MD Address: Address: [address] [place] [address] Personnel Name: Sherry Melgar MD Address: Address: [address] [place] [address] FOR RECORDS PERTAINING TO PATIENTS WHO ARE OR HAVE BEEN ENROLLED IN A CHEMICAL DEPENDENCY/SUBSTANCEABUSE PROGRAM, SOME INFORMATION MAY BE OMITTED. This clinical summary was aggregated from multiple sources. Caution should be exercised in using it in the provision of clinical care. This summary normalizes information from multiple sources, and as a consequence, information in this document may materially change the coding, format and clinical context of patient data. In addition, data may be omitted in some cases. CLINICAL DECISIONS SHOULD BE BASED ON THE PRIMARY CLINICAL RECORDS. [employer] provides no warranty or guarantee of the accuracy or completeness of information in this document.
== END 2024-08-01 07:40 | disposition home or self-care (01) ==
LOC: MRI 07:39
PROVIDERS: PCP Family Medicine; Visit Provider Family Medicine
DX: R41.82 Altered mental status, unspecified (principal)
CPT/HCPCS: 70551